=== PATIENT | female | born 1990 | race Caucasian/White ===

== ENCOUNTER 2016-08-23 11:32 | Emergency (ER) | payer OTHER | END 2016-08-23 13:15 | disposition left against medical advice (07) | LOC: UCCORT 11:32 | DX: J34.89 Other specified disorders of nose and nasal sinuses (principal); Z53.21 Procedure and treatment not carried out due to patient leaving prior to being seen by health care provider ==

== ENCOUNTER 2018-02-11 09:34 | Emergency (ER) | payer OTHER ==
[2018-02-11 10:34] VITALS: BP 117/76
--- NOTE | 2018-02-11 11:06 | UC ---
Throat Pain/Nasal Kai HPI - HPI Summary HPI Summary: 27 F with sinus pressure and ear pressure for 2 weeks . worsening per pt. has Dr Capellan throat as well. has ENT and chronic ear infections. had fever 3 days ago - History of Current Complaint Chief Complaint: UCRespiratory Stated Complaint: SORE THOAT,EAR PAIN Time Seen by Provider: 02/11/18 10:24 Hx Obtained From: Patient Hx Last Menstrual Period: 12/16/17 Onset/Duration: Gradual Onset Severity: Moderate Pain Intensity: 6 Cough: Productive Associated Signs & Symptoms: Positive: Sinus Discomfort, Fever - Allergies/Home Medications Allergies/Adverse Reactions: Allergies Allergy/AdvReac Type Severity Reaction Status Date / Time No Known Allergies Allergy Verified 02/11/18 10:34 Home Medications: Home Medications Citalopram TAB* [CeleXA TAB*] 40 mg PO DAILY 02/11/18 [History Confirmed ] Ibuprofen TAB* [Motrin TAB* 800 MG] 800 mg PO Q24H PRN 02/11/18 [History Confirmed 02/11/18] Lisinopril TAB* [Prinivil TAB*] 20 mg PO DAILY 02/11/18 [History Confirmed 02/11] Ondansetron TAB* [Zofran 4 MG Tab*] 8 mg PO Q6H PRN 02/11/18 [History Confirmed 02/11/18] Phendimetrazine Tartrate 35 mg PO BID 02/11/18 [History Confirmed 02/11/18] raNITIdine HCl [Ranitidine HCl] 150 mg PO DAILY 02/11/18 [History Confirmed ] PMH/Surg Hx/FS Hx/Imm Hx Previously Healthy: Yes Cardiovascular History: Hypertension GI/ History: Gastroesophageal Reflux Psychological History: Depression - Surgical History Surgical History: Yes Surgery Procedure, Year, and Place: 10/11/15; lap appy 10/07/17 - Family History Known Family History: Positive: None - Social History Alcohol Use: None Substance Use Type: None Smoking Status (MU): Light Every Day Tobacco Smoker Type: Cigarettes Amount Used/How Often: 2 per day Length of Time of Smoking/Using Tobacco: 10 yrs Have You Smoked in the Last Year: Yes When Did the Patient Quit Smoking/Using Tobacco: 03/04/15 Review of Systems Constitutional: Fatigue ENT: Sore Throat, Ear Ache, Nasal Discharge, Sinus Congestion, Sinus Pain/ Tenderness Respiratory: Cough Is Patient Immunocompromised?: No All Other Systems Reviewed And Are Negative: Yes Physical Exam Triage Information Reviewed: Yes Appearance: Well-Appearing, No Pain Distress, Well-Nourished Vital Signs: Initial Vital Signs Temp 98.9 F 02/11/18 10:25 Pulse 92 02/11/18 10:25 Resp 20 02/11/18 10:25 BP 117/76 02/11/18 10:25 Pulse Ox 99 02/11/18 10:25 Vital Signs Reviewed: Yes Eye Exam: Normal ENT Exam: Normal ENT: Positive: Nasal congestion, TM dull, Sinus tenderness Dental Exam: Normal Neck exam: Normal Neck: Positive: 1 Respiratory Exam: Normal Cardiovascular Exam: Normal Musculoskeletal Exam: Normal Neurological Exam: Normal Psychological Exam: Normal Skin Exam: Normal Throat Pain/Nasal Course/Dx - Course Course Of Treatment: she is aware of SE with meds f/u with ENT if any concern - Differential Dx/Diagnosis Differential Diagnosis/HQI/PQRI: Otitis Media, Pharyngitis, URI Provider Diagnoses: Sinusitis Discharge - Sign-Out/Discharge Documenting (check all that apply): Patient Departure - Discharge Plan Condition: Good Disposition: HOME Prescriptions: Amoxicillin/Clavulanate TAB* [Augmentin TAB 875*] 875 mg PO BID 10 Days #20 tab Patient Education Materials: Sinusitis (ED) Referrals: Claudia Cuba MD [Primary Care Provider] - 4 Days - Billing Disposition and Condition Condition: GOOD Disposition: Home
== END 2018-02-11 11:05 | disposition home or self-care (01) ==
LOC: UCCORT 09:34
DX: J32.9 Chronic sinusitis, unspecified (principal); I10 Essential (primary) hypertension; K21.9 Gastro-esophageal reflux disease without esophagitis; F32.9 Major depressive disorder, single episode, unspecified; F17.210 Nicotine dependence, cigarettes, uncomplicated
CPT/HCPCS: 99212; G0463

== ENCOUNTER 2018-04-14 17:35 | Emergency (ER) | payer OTHER ==
--- NOTE | 2018-04-14 19:17 | UC ---
General HPI - HPI Summary HPI Summary: Patient states that on Tuesday-5 days ago, she developed sinus congestion. She came here the following day and was treated with doxycycline for a sinusitis. She followed up with her primary care on a routine visit yesterday and they continued her current treatment .she presents here today because she notes she has worsening sinus pressure. She has no associated fever or chills or bloody purulent drainage. She admits to having a nasal steroid spray from Dr. Ramachandran her ENT which she has not yet used. Her BS is stable in the 90's. - History of Current Complaint Stated Complaint: SINUS COMPLAINT Time Seen by Provider: 04/14/18 19:10 Hx Obtained From: Patient Hx Last Menstrual Period: 12/16/17 Onset/Duration: Gradual Onset Timing: Constant Alleviating: nothing Associated Signs & Symptoms: Negative: Fever - Allergy/Home Medications Allergies/Adverse Reactions: Allergies Allergy/AdvReac Type Severity Reaction Status Date / Time No Known Allergies Allergy Verified 04/14/18 19:21 PMH/Surg Hx/FS Hx/Imm Hx - Additional Past Medical History Additional PMH: OM, Sinusitis Endocrine History: Diabetes Cardiovascular History: Hypertension - Surgical History Surgical History: Yes Surgery Procedure, Year, and Place: 10/11/15; lap appy 10/07/17 - Family History Known Family History: Positive: Hypertension, Diabetes - Social History Occupation: Employed Full-time Alcohol Use: None Substance Use Type: None Smoking Status (MU): Light Every Day Tobacco Smoker Type: Cigarettes Amount Used/How Often: 2 per day Length of Time of Smoking/Using Tobacco: 10 yrs Have You Smoked in the Last Year: Yes When Did the Patient Quit Smoking/Using Tobacco: 03/04/15 - Immunization History Vaccination Up to Date: Yes Review of Systems Constitutional: Negative Skin: Negative Eyes: Negative ENT: Ear Ache, Nasal Discharge, Sinus Congestion, Sinus Pain/Tenderness Respiratory: Negative Cardiovascular: Negative Gastrointestinal: Negative Genitourinary: Negative Motor: Negative Neurovascular: Negative Musculoskeletal: Negative Neurological: Negative Psychological: Negative Is Patient Immunocompromised?: No All Other Systems Reviewed And Are Negative: Yes Physical Exam Triage Information Reviewed: Yes Appearance: Well-Appearing Vital Signs Reviewed: Yes Eyes: Positive: Conjunctiva Clear ENT: Positive: Pharynx normal, TMs normal, Sinus tenderness. Negative: Nasal drainage Neck: Positive: Supple, Nontender, No Lymphadenopathy Respiratory: Positive: Lungs clear, Normal breath sounds Cardiovascular: Positive: RRR, No Murmur Abdomen Description: Positive: Nontender, No Organomegaly, Soft Bowel Sounds: Positive: Present Musculoskeletal: Positive: ROM Intact Neurological: Positive: Alert Psychological: Positive: Age Appropriate Behavior Skin Exam: Normal Course/Dx - Course Course Of Treatment: will have pt finish the antibiotic, use her nasal steroid spray as directed by her ent. will add po steroid and ent f/u. - Differential Dx - Multi-Symptom Provider Diagnoses: Sinusitis Discharge - Sign-Out/Discharge Documenting (check all that apply): Patient Departure All imaging exams completed and their final reports reviewed: No Studies - Discharge Plan Condition: Stable Disposition: HOME Prescriptions: methylPREDNISolone [Medrol Dosepak 4 MG*] 0 mg PO .SEE VENKATA INSTRUCTION #1 tab Patient Education Materials: Sinusitis (ED) Referrals: Isidra Briones NP [Primary Care Provider] - If Needed Valentin Ramachandran MD [Medical Doctor] - 5 Days Additional Instructions: FINISH THE DOXYCYCLINE DIRECTED. START THE NASAL STEROID PRESCRIBED BY DR RAMACHANDRAN. THE MEDROL(ORAL STEROID)MAY RAISE YOUR BLOOD SUGAR. CHECK YOUR SUGAR DAILY. GO TO ER IF IT GOES ABOVE 400. - Billing Disposition and Condition Condition: STABLE Disposition: Home
[2018-04-14 19:20] VITALS: BP 130/86
== END 2018-04-14 19:29 | disposition home or self-care (01) ==
LOC: UCCORT 17:35
DX: J32.9 Chronic sinusitis, unspecified (principal); I10 Essential (primary) hypertension; Z87.891 Personal history of nicotine dependence
CPT/HCPCS: 99212; G0463

== ENCOUNTER 2019-06-24 09:35 | Emergency (ER) | payer OTHER ==
--- OUTSIDE RECORDS SUMMARY | 2019-06-24 09:42 | XMS REPORT | Continuity of Care Document ---
:1990 External Reference #:[id number] Author Name John Kulkarni MD (transmitted by agent of provider Elvi Ramos) Address [address] [place] [address] Care Team Providers Name Role Phone Ria Briones UX DEVELOPER - Nurse Care Team Information Buildings Painter [phone] Practitioner Problems Active Problems Provider Date Type 2 diabetes mellitus Ria Briones FNP Onset: 08/24/2018 Benign essential hypertension Onset: 10/20/2016 Anxiety state Ria Briones FNP Onset: 08/24/2018 Hyperlipidemia Claudia Cuba M.D. Onset: 08/24/2018 Gastro-esophageal reflux disease with Gonzalez Esteves MD Onset: 03/31/2018 esophagitis Abdominal pain Gonzalez Esteves MD Onset: 03/04/2017 Atrophic gastritis Gonzalez Esteves MD Onset: 03/31/2018 Non-alcoholic fatty liver Ria Briones FNP Onset: 12/18/2018 Note: Document: 12/18/18 - Limited Abdominal Sonogram Social History Type Date Description Comments Sex Unknown Smokeless Tobacco Never Used Smokeless Tobacco ETOH Use Rarely consumes alcohol Tobacco Use Start: Unknown Patient is a current smoker, smokes every day Recreational Drug Use Denies Drug Use Tobacco Use Start: Unknown Light tobacco smoker (10 or fewer cigarettes/day) Smoking Status Reviewed: 04/03/19 Light tobacco smoker (10 or fewer cigarettes/day) Allergies, Adverse Reactions, Alerts Active Allergies Reaction Severity Comments Date Doxycycline 09/08/2018 Seasonal 02/12/2019 Inactive Allergies NKDA 10/20/2016 Medications Active Medications SIG Qnty Indications Ordering Date Provider Glyburide 2 tabs by mouth 180tabs E11.9 Novi, 09/08/2018 5mg Tablets daily LUCY Rollins Freestyle Lite Blood use once daily 1units E11.9 Novi, 08/25/2018 Glucose Monitoring for diabetic Ria System testing dx: [employer] Device E11.9 Lancets Ultra Thin use twice daily 100units E11.9 Novi, 08/25/2018 30G and as needed Philipp Rollins 30G Misc for blood sugar [employer] testing Freestyle Lite Test use twice daily 150units E11.9 Novi, 08/25/2018 and as needed to Ria Strips test blood [facility] sugars dx: e11.9 Pantoprazole Sodium 1 by mouth every 90tabs K21.0 John Kulkarni, 2017 day every MD 20mg Tablets DR morning History Medications Fleet Enema use one today 798ml K59.00 Novi, 01/01/2019 - and may repeat LUCY Rollins 01/11/2019 7-19GM/118ML Enema tomorrow if not effective Senna-S one by mouth 30tabs K59.00 Novi, 01/01/2019 - 8.6-50mg every day for a LUCY Rollins 04/03/2019 Tablets week then as needed Miralax 1 tablespoon in 510gm K59.00 Novi, 01/01/2019 - 3350NF 8 ounces of LUCY Rollins 04/03/2019 Powder water once a day Immunizations CPT Code Status Date Vaccine Lot # [id number] Given 08/25/2018 Influenza Virus Vaccine, Quadrivalent, 36 Mos+, [id number] .[id number] Vital Signs Date Vital Result Comment 04/03/2019 12:47pm BP Systolic Sitting Right Arm 118 mmHg BP Diastolic Sitting Right Arm 64 mmHg Heart Rate 95 /min Respiratory Rate 20 /min Height 62 inches 5'2" Weight 205.00 lb BMI (Body Mass Index) 37.5 kg/m2 BSA (Body Surface Area) 1.93 m2 [place] body weight in kilograms 50 kg O2 % BldC Oximetry 99 % 02/12/2019 3:40pm BP Systolic Lying Down Resting Right Arm 128 mmHg BP Diastolic Lying Down Resting Right Arm 78 mmHg Heart Rate 106 /min Respiratory Rate 18 /min Height 62 inches 5'2" Weight 202.00 lb BMI (Body Mass Index) 36.9 kg/m2 BSA (Body Surface Area) 1.92 m2 [place] body weight in kilograms 50 kg O2 % BldC Oximetry 97 % Ra Results Test Acquired Date Facility Test Result H/L Range Note CBC 06/06/2019 [facility] White Blood 10.2 K/uL Normal 3.1-10.7 1 W/Automated [address] [place] [address] [phone] Red Blood Count 4.88 M/uL Normal 3.90-5.40 Hemoglobin 14.5 gm/dL Normal 11.6-15.8 Hematocrit 45.8 % Normal 36.0-46.1 Mean Cell Volume 93.9 fl Normal 80.9-99.0 Mean Corpuscular HGB 29.7 pg Normal 25.9-32.7 Mean Corpuscular HGB Conc 31.7 g/dL Normal 30.8-34.3 Platelet Count 308 K/uL Normal 155-360 Red Cell Distri Width SD 44.8 fl Normal 36-47 Red Cell Distri Width %CV 13.1 % Normal 11.7-14.4 Mean Platelet Volume 9.3 fl Normal 8.9-12.4 Neut% 64.8 % Normal 40.4-72.8 Lymph % 22.3 % Normal 20.0-42.0 Ransom % 9.9 % Normal 4.3-13.2 Eo% 1.8 % Normal 0.0-6.6 Bas% 0.6 % Normal 0.0-1.1 Immature Grans 0.6 % Normal 0.0-5.0 NRBC % 0.0 /100WBC < 10/ 100 WBC Neut# 6.63 K/uL Normal 1.8-7.0 Lymph # 2.28 K/uL Normal 1.0-4.0 Ransom # 1.01 K/uL High 0.3-0.9 Eos # 0.18 K/uL Normal 0.0-0.5 Baso # 0.06 K/uL Normal 0.0-0.1 Immature Grans Absolute 0.06 K/uL NRBC # 0.00 K/uL Laboratory test 06/06/2019 [facility] Sedimentation 9 mm/hr Normal 0-[address] Rate,[place] [address] [phone] Comprehensive 06/06/2019 [facility] Glucose 115 High 74-106 Metabolic Panel [address] mg/[place] [address] [phone] BUN 13 mg/dL Normal 7-18 Creatinine 0.8 mg/dL Normal 0.6-1.3 Glom Filtration Rate, Estimate >60 mL/min >60 If >60 mL/min >60 2 BUN/Creat 16.2 ratio Sodium 138 mmol/L Normal 136-145 Potassium 3.9 mmol/L Normal 3.5-5.1 Chloride 105 mmol/L Normal 98-107 Carbon Dioxide 25 mmol/L Normal 21-32 Anion Gap 8 mEq/L Normal 8-16 Calcium 9.1 mg/dL Normal 8.5-10.1 Total Protein 8.1 g/dL Normal 6.4-8.2 Albumin 3.6 g/dL Normal 3.4-5.0 Globulin 4.5 g/dL High 1.9-4.3 Alb/Glob 0.8 ratio Bilirubin,Total 0.2 mg/dL Normal 0.2-1.0 Sgot/Ast 15 U/L Normal 15-37 SGPT/Alt 32 U/L Normal 12-78 Alkaline Phosphatase 83 U/L Normal 45-117 Laboratory test 06/06/2019 [facility] C-Reactive 11.8 High <3.[address] Protein,Quant mg/L [place], [place] [id number] [phone] Type And Screen 04/22/2019 [facility] Patient Blood Type O POS Normal [address] [place] [address] [phone] Antibody Screen Negative Normal Negative Ua RFX Micro & 04/22/2019 [facility] Urine Color Light-Yellow Yellow Culture II [address] [place] [address] [phone] Urine Clarity Clear Clear Urine Glucose - Dipstick NEGATIVE mg/dL Negative Urine Bilirubin - Dipstick NEGATIVE Negative Urine Ketone NEGATIVE mg/dL Negative Urine Specific [place] 1.013 Normal 1.010-1.030 Urine Blood MODERATE Abnormal 0-2 Urine PH 6.0 Low 6.5-7.5 Urine Protein - Dipstick NEGATIVE mg/dL Negative Urine Urobilinogen - Dipstick < 2.0 mg/dL < 2.0 Urine Nitrite - Dipstick NEGATIVE Negative Urine Leuk Esterase NEGATIVE Negative Urine RBC 21-30 rbc/hpf 0-2 Urine Epithelial Cells MODERATE /lpf None Seen Source: URINE, CLEAN CAT <SEE NOTE> 4 Laboratory test 04/22/2019 [facility] HCG, Quant 67.0 mIU/mL 5 finding [address] [place] [address] [phone] Inflammatory Bowel 03/28/2019 [facility] Atypical pANCA <1:20 titer Neg:< 6, 7 Disease [address] 1:20 [place] [address] [phone] Saccharomyces cerevisiae, IgG < 20.0 units 0.0-24.9 8 Saccharomyces cerevisiae, IgA < 20.0 units 0.0-24.9 9 Laboratory test 01/17/2019 [facility] HCG, Quant 2.0 mIU/mL 10, 11 finding [address] [place] [address] [phone] Basic Metabolic 01/17/2019 [facility] Glucose 104 mg/dL Normal 74-1 Panel [address] [facility] [address] [place] [address] [phone] BUN 15 mg/dL Normal 7-18 Creatinine 0.7 mg/dL Normal 0.6-1.3 Glom Filtration Rate, Estimate >60 mL/min >60 If >60 mL/min >60 12 BUN/Creat 21.4 ratio Sodium 141 mmol/L Normal 136-145 Potassium 3.5 mmol/L Normal 3.5-5.1 Chloride 106 mmol/L Normal 98-107 Carbon Dioxide 24 mmol/L Normal 21-32 Anion Gap 11 mEq/L Normal 8-16 Calcium 8.8 mg/dL Normal 8.5-10.1 CBC 01/17/2019 [facility] White Blood Count 12.8 K/uL High 3.1-10.7 [address] [place] [address] [phone] Red Blood Count 4.40 M/uL Normal 3.90-5.40 Hemoglobin 13.1 gm/dL Normal 11.6-15.8 Hematocrit 38.5 % Normal 36.0-46.1 Mean Cell Volume 87.5 fl Normal 80.9-99.0 Mean Corpuscular HGB 29.8 pg Normal 25.9-32.7 Mean Corpuscular HGB Conc 34.0 g/dL Normal 30.8-34.3 Platelet Count 437 K/uL High 155-360 Red Cell Distri Width SD 43.4 fl Normal 36-47 Red Cell Distri Width %CV 13.4 % Normal 11.7-14.4 Mean Platelet Volume 9.1 fl Normal 8.9-12.4 NRBC % 0.0 /100WBC < 10/ 100 WBC Urine Dipstick 01/01/2019 [facility] Inhouse Ua Color Yellow Yellow Ua Clarity Clear Clear Ua Leuko neg Negative Ua Nitrite neg Negative Ua Urobilinogen 3.5 High 0.2 - 1.0 E.U./dL Ua Protein neg Negative Ua PH 6.0 Low 6.5-7.5 Ua Blood neg Negative Ua Specific [place] 1.015 1.010-1.030 Ua Ketones neg Negative Ua Bilirubin neg Negative Ua Glucose neg Negative Urine HCG 01/01/2019 [facility] Inhouse Misc Negative (Qualitative) Laboratory test 01/01/2019 [facility] Inhouse Urine negative finding Test Glycohemoglobin A1c 12/29/[address] [facility] [address] Glycohemoglobin 6.5 % High 4.2- 13, [address] [facility] (A1c) 6.3 [place], [place] [id number] [phone] eAG 140 mg/dL Ua RFX Micro & 12/18/2018 [facility] Urine Color DK YELLOW Yellow 15 Culture II [address] [place], [place] [id number] [phone] Urine Clarity CLEAR Clear Urine Glucose - Dipstick NEGATIVE mg/dL Negative Urine Bilirubin - Dipstick NEGATIVE Negative Urine Ketone NEGATIVE mg/dL Negative Urine Specific [place] >= 1.030 Normal 1.010-1.030 Urine Blood TRACE Negative Urine PH 5.5 Low 6.5-7.5 Urine Protein - Dipstick NEGATIVE mg/dL Negative Urine Urobilinogen - Dipstick 0.2 E.U./dL Normal 0.2-1.0 Urine Nitrite - Dipstick NEGATIVE Negative Urine Leuk Esterase NEGATIVE Negative Source: URINE, CLEAN CAT <SEE NOTE> 16 Urine HCG 12/18/2018 [facility] Urine HCG NEGATIVE Negative 17 (Qualitative) [address] (Qualitative) [place] [address] [phone] Source: URINE, CLEAN CAT <SEE NOTE> 18 Laboratory test 12/18/2018 [facility] Lipase 203 U/L Normal 56-289 finding [address] [place] [address] [phone] Comprehensive 12/18/2018 [facility] Glucose 90 mg/dL Normal 74-106 Metabolic Panel [address] [place] [address] [phone] BUN 17 mg/dL Normal 7-18 Creatinine 0.9 mg/dL Normal 0.6-1.3 Glom Filtration Rate, Estimate >60 mL/min >60 If >60 mL/min >60 19 BUN/Creat 18.8 ratio Sodium 136 mmol/L Normal 136-145 Potassium 3.8 mmol/L Normal 3.5-5.1 Chloride 102 mmol/L Normal 98-107 Carbon Dioxide 26 mmol/L Normal 21-32 Anion Gap 8 mEq/L Normal 8-16 Calcium 9.3 mg/dL Normal 8.5-10.1 Total Protein 8.6 g/dL High 6.4-8.2 Albumin 4.2 g/dL Normal 3.4-5.0 Globulin 4.4 g/dL High 1.9-4.3 Alb/Glob 1.0 ratio Bilirubin,Total 0.3 mg/dL Normal 0.2-1.0 Sgot/Ast 21 U/L Normal 15-37 SGPT/Alt 43 U/L Normal 12-78 Alkaline Phosphatase 99 U/L Normal 45-117 CBC W/Automated 12/18/2018 [facility] White Blood 9.8 K/uL Normal 3.1-10.7 Diff [address] [place] [address] [phone] Red Blood Count 4.98 M/uL Normal 3.90-5.40 Hemoglobin 14.4 gm/dL Normal 11.6-15.8 Hematocrit 44.7 % Normal 36.0-46.1 Mean Cell Volume 89.8 fl Normal 80.9-99.0 Mean Corpuscular HGB 28.9 pg Normal 25.9-32.7 Mean Corpuscular HGB Conc 32.2 g/dL Normal 30.8-34.3 Platelet Count 524 K/uL High 155-360 Red Cell Distri Width SD 45.5 fl Normal 36-47 Red Cell Distri Width %CV 14.0 % Normal 11.7-14.4 Mean Platelet Volume 9.1 fl Normal 8.9-12.4 Neut% 63.6 % Normal 40.4-72.8 Lymph % 24.4 % Normal 20.0-42.0 Ransom % 8.8 % Normal 4.3-13.2 Eo% 1.8 % Normal 0.0-6.6 Bas% 0.7 % Normal 0.0-1.1 Immature Grans 0.7 % Normal 0.0-5.0 NRBC % 0.0 /100WBC < 10/ 100 WBC Neut# 6.19 K/uL Normal 1.8-7.0 Lymph # 2.38 K/uL Normal 1.0-4.0 Ransom # 0.86 K/uL Normal 0.3-0.9 Eos # 0.18 K/uL Normal 0.0-0.5 Baso # 0.07 K/uL Normal 0.0-0.1 Immature Grans Absolute 0.07 K/uL NRBC # 0.00 K/uL 1 MIGRAINE PAIN,DIZZY,NAUSEA,X3 DAYS 2 Note: Persistent reduction for 3 months or more in an eGFR <60 mL/min/1.73 m2 defines CKD. Patients with eGFR values >/=60 mL/min/1.73 m2 may also have CKD if evidence of persistent proteinuria is present. The original MDRD equation for estimated GFR is not valid for patients less than 18 years of age. Additional information may be found at www.kdoqi.org. 3 MISCARRIAGE, DIZZY, NAUSEA, BLEEDING 4 URINE, CLEAN CATCH 5 Approximate Gestational Age and Total BHCG Range: 0.2 - 1 Week........................5-50 mIU/mL 1 - 2 Weeks.....................50-500 mIU/mL 2 - 3 Weeks..................100-5,000 mIU/mL 3 - 4 Weeks.................500-10,000 mIU/mL 4 - 5 Weeks...............1,000-50,000 mIU/mL 5 - 6 Weeks.............10,000-100,000 mIU/mL 6 - 8 Weeks.............15,000-200,000 mIU/mL 2 - 3 Months............10,000-100,000 mIU/mL 6 N91.2 (R14.0) 7 The atypical pANCA pattern has been observed in a significant percentage of patients with ulcerative colitis, primary sclerosing cholangitis and autoimmune hepatitis. ASCA+/PANCA- Suggestive of Crohn's disease ASCA-/PANCA+ Suggestive of Ulcerative colitis 8 Negative <20.0 Equivocal 20.1 - 24.9 Positive >or= 25.0 9 Negative <20.0 Equivocal 20.1 - 24.9 Positive >or= 25.0 IgA and IgG antibody testing for S. cerevisiae is useful adjunct testing for differentiating Crohn's disease and ulcerative colitis. Close to 80% of Crohn's disease patients are positive for either IgA or IgG. In ulcerative colitis, less than 15% are positive for IgG and less than 2% are positive for IgA. Fewer than 5% are positive for either IgG or IgA antibody, and no healthy controls had antibody for both. Performed at: [address] [id number] Audio/Video Technician: Wiliam Arechiga MD, Phone: [phone] ?MISCARRIAGE 11 Approximate Gestational Age and Total BHCG Range: 0.2 - 1 Week........................5-50 mIU/mL 1 - 2 Weeks.....................50-500 mIU/mL 2 - 3 Weeks..................100-5,000 mIU/mL 3 - 4 Weeks.................500-10,000 mIU/mL 4 - 5 Weeks...............1,000-50,000 mIU/mL 5 - 6 Weeks.............10,000-100,000 mIU/mL 6 - 8 Weeks.............15,000-200,000 mIU/mL 2 - 3 Months............10,000-100,000 mIU/mL 12 Note: Persistent reduction for 3 months or more in an eGFR <60 mL/min/1.73 m2 defines CKD. Patients with eGFR values >/=60 mL/min/1.73 m2 may also have CKD if evidence of persistent proteinuria is present. The original MDRD equation for estimated GFR is not valid for patients less than 18 years of age. Additional information may be found at www.kdoqi.org. 13 F41.9 E11.9 14 Elevated levels of HbA1c suggest the need for more aggressive treatment of glycemia. The [place] [employer] recommends that a primary goal of therapy should be a HbA1c of <7% and that physicians should re-evaluate the treatment regimen in patients with HbA1c values consistently >8%. 15 UPPER ABD PAIN, FROM MIDDLE TO R SIDE 16 URINE, CLEAN CATCH 17 FIRST MORNING SPECIMENS GENERALLY CONTAIN THE HIGHEST CONCENTRATION OF HCG AND ARE RECOMMENDED FOR EARLY DETECTION OF . Method: Quidel QuickVue One-Step Immunoassay 18 URINE, CLEAN CATCH 19 Note: Persistent reduction for 3 months or more in an eGFR <60 mL/min/1.73 m2 defines CKD. Patients with eGFR values >/=60 mL/min/1.73 m2 may also have CKD if evidence of persistent proteinuria is present. The original MDRD equation for estimated GFR is not valid for patients less than 18 years of age. Additional information may be found at www.kdoqi.org. Procedures Date Code Description Status 04/01/2018 350502189 Diabetic Foot Exam Completed Medical Devices Description No Information Available Encounters Type Date Location Provider Dx Diagnosis Office Visit 02/12/2019 John Pearce MD K21.9 Gastro-esophageal 3:30p reflux disease without esophagitis R14.0 Abdominal distension (gaseous) Office Visit 01/11/2019 Family Briones, E11.9 Type 2 diabetes 8:45a [facility] [place], [place] [employer] mellitus without RD complications F41.9 Anxiety disorder, unspecified K59.00 Constipation, unspecified G43.009 Migraine w/o aura, not intractable, w/o status migrainosus Office Visit 01/01/2019 Family Anselmo, K59.00 Constipation, 2:00p [facility] [place], [employer] unspecified RD R10.84 Generalized abdominal pain Z32.02 Encounter for test, result negative Assessments Date Code Description Provider 04/03/2019 R19.7 Diarrhea, unspecified John Kulkarni MD 02/12/2019 K21.9 Gastro-esophageal reflux disease without John Kulkarni MD esophagitis 02/12/2019 R14.0 Abdominal distension (gaseous) John Kulkarni MD 01/11/2019 E11.9 Type 2 diabetes mellitus without [place], [place], [employer] complications 01/11/2019 F41.9 Anxiety disorder, unspecified Clune, [place], [employer] 01/11/2019 K59.00 Constipation, unspecified Clune, [place], [employer] 01/11/2019 G43.009 Migraine without aura, not intractable, Clune, [place], [employer] without status migra 01/01/2019 K59.00 Constipation, unspecified Clune, [place], [employer] 01/01/2019 R10.84 Generalized abdominal pain Clune, [place], [employer] 01/01/2019 Z32.02 Encounter for test, result Clune, [place] , [employer] negative Plan of Treatment No Information Available Functional Status Description No Information Available Mental Status Description No Information Available Referrals Description No Information Available
[2019-06-24 09:49] VITALS: BP 125/79
--- NOTE | 2019-06-24 10:03 | UC ---
Throat Pain/Nasal Kai HPI - HPI Summary HPI Summary: 29 year old diabetic female presents with a complaint of sore throat for the past 3 days. Denies fever, swollen glands, notes associated dry cough and nasal congestion. No n/v/d. States her diabetes is well controlled with an A1C in the 6's. - History of Current Complaint Chief Complaint: UCGeneralIllness Stated Complaint: SORE THROAT Time Seen by Provider: 06/24/19 09:45 Hx Obtained From: Patient Hx Last Menstrual Period: Miscarraige 04/15/19 Pain Intensity: 7 - Allergies/Home Medications Allergies/Adverse Reactions: Allergies Allergy/AdvReac Type Severity Reaction Status Date / Time doxycycline Allergy Rash Verified 06/24/19 09:44 Home Medications: Home Medications glyBURIDE TAB* [Diabeta TAB*] 5 mg PO BID 06/24/19 [History Confirmed 06/24/19] PMH/Surg Hx/FS Hx/Imm Hx Previously Healthy: Yes Endocrine History: Diabetes - Surgical History Surgical History: Yes Surgery Procedure, Year, and Place: 10/11/15; lap appy 10/07/17 - Family History Known Family History: Positive: None, Hypertension, Diabetes - Social History Alcohol Use: None Substance Use Type: None Smoking Status (MU): Light Every Day Tobacco Smoker Type: Cigarettes Amount Used/How Often: ~1/5 PPD Length of Time of Smoking/Using Tobacco: Since Age 13 Have You Smoked in the Last Year: Yes When Did the Patient Quit Smoking/Using Tobacco: 03/04/15 Household Exposure Type: Cigarettes - Immunization History Vaccination Up to Date: Yes Review of Systems All Other Systems Reviewed And Are Negative: Yes Constitutional: Positive: Negative Skin: Positive: Negative Eyes: Positive: Negative, Photophobia ENT: Positive: Ear Ache - left ear Respiratory: Positive: Negative Cardiovascular: Positive: Negative Gastrointestinal: Positive: Negative Genitourinary: Positive: Negative Motor: Positive: Negative Neurovascular: Positive: Negative Musculoskeletal: Positive: Negative Neurological: Positive: Negative Psychological: Positive: Negative Is Patient Immunocompromised?: No Physical Exam Triage Information Reviewed: Yes Appearance: Well-Appearing, No Pain Distress Vital Signs: Initial Vital Signs Temp 98.4 F 06/24/19 09:42 Pulse 85 06/24/19 09:42 Resp 16 06/24/19 09:42 BP 125/79 06/24/19 09:42 Pulse Ox 99 06/24/19 09:42 Vital Signs Reviewed: Yes Eyes: Positive: Conjunctiva Clear ENT: Positive: Normal ENT inspection, Pharynx normal, TMs normal Neck: Positive: Supple, Nontender, No Lymphadenopathy Respiratory: Positive: Chest non-tender, Lungs clear, Normal breath sounds. Negative: Crackles, Rhonchi, Wheezing Cardiovascular: Positive: RRR, No Murmur Abdomen Description: Positive: Nontender, Soft Musculoskeletal Exam: Normal Neurological Exam: Normal Psychological Exam: Normal Skin Exam: Normal Throat Pain/Nasal Course/Dx - Course Course Of Treatment: Negative rapid strep with score of 0 on Centor Criteria. - Differential Dx/Diagnosis Provider Diagnosis: Pharyngitis Discharge ED - Sign-Out/Discharge Documenting (check all that apply): Patient Departure All imaging exams completed and their final reports reviewed: No Studies - Discharge Plan Condition: Stable Disposition: HOME Prescriptions: Ibuprofen TAB* [Motrin TAB* 600 MG] 600 mg PO Q8H PRN #30 tab PRN Reason: Pain - Moderate Patient Education Materials: Pharyngitis (ED) Referrals: Isidra Briones NP [Primary Care Provider] - Additional Instructions: Drink plenty of warm liquids and salt water gargles as needed to sooth throat. Ibuprofen or Tylenol as needed for pain. Follow-up with your primary care physician if your symptoms persist or worsen. - Billing Disposition and Condition Condition: STABLE Disposition: Home
== END 2019-06-24 10:31 | disposition home or self-care (01) ==
LOC: UCCORT 09:35
DX: J02.9 Acute pharyngitis, unspecified (principal); R09.81 Nasal congestion; E11.9 Type 2 diabetes mellitus without complications; Z88.1 Allergy status to other antibiotic agents; F17.210 Nicotine dependence, cigarettes, uncomplicated; H92.02 Otalgia, left ear; Z79.84 Long term (current) use of oral hypoglycemic drugs
CPT/HCPCS: 87651; 99212; G0463